=== PATIENT | male | born 1955 | race Caucasian/White ===

== ENCOUNTER 2020-07-18 15:00 | Emergency (ER) | payer SELFPAY ==
[~2020-07-18] VITALS: Ht 165.1 cm; Wt 61.0 kg
[~2020-07-18 15:00] MED LIST: DIPH,PERTUSS(ACELL),TET VAC/PF 0.5 ML SYRINGE. VAX IM ONE; IV NORMAL SALINE 1000ML BAG 1,000 ML IV ONE; LIDOCAINE 2%/EPI 1:100,000 20 ML VIAL. INJ ONE; NEOMY/BACITR/POLYMYXIN OINT PACKET. TP ONE; fentaNYL PF VIAL 100 MCG/2 ML VIAL IV ONE
--- NOTE | 2020-07-18 15:25 | PHYS DOC ---
Past Medical History Past Medical History: No Pertinent History Past Surgical History: No Surgical History Smoking Status: Current Every Day Smoker Alcohol Use: None Drug Use: None General Adult EDM: Chief Complaint: TRAUMA ALERT HPI: HPI: Patient is a 65-year-old male presenting to the ED with a dorsal left hand injury sustained by a chainsaw accident at 1315 today. Patient was cutting limbs off a tree when he lost control the chainsaw and ended up cutting the back of his left hand. Patient denies any numbness or tingling in his left hand but is unable extend his left third digit and can minimally extend his fourth digit. Patient denies any head trauma or falling during the incident. Patient states he is in considerable amount of pain and has felt short of breath and "in shock" since the incident. Patient's last ate at 1215 today. Reports last tetanus booster was greater than 5 years ago. Denies use of blood thinners. Denies kno wn exposure to COVID-19. Review of Systems: Review of Systems: Constitutional: Denies fever or chills Eyes: Denies redness or eye pain HENT: Denies nasal congestion or sore throat Respiratory: Denies cough or shortness of breath Cardiovascular: Denies chest pain or palpitations GI: Denies abdominal pain, nausea, or vomiting : Denies dysuria or hematuria Musculoskeletal: Reports joint pain Integument: Denies rash; reports laceration to dorsal left hand Neurologic: Denies headache, focal weakness or sensory changes Complete systems were reviewed and found to be within normal limits, except as documented in this note. Current Medications: Current Medications Medications (Trade) Dose Ordered Sig/[facility] Start Time Stop Time Status Last Admin Dose Admin Cefazolin Sodium/ Dextrose 50 ml @ 100 mls/hr 1X ONCE 07/18/20 14:45 07/18/20 15:14 07/18/20 14:48 100 MLS/HR Diphtheria/ Tetanus/Acell Pertussis (ADACEL TDap SYRINGE) 0.5 ml ONCE ONCE 07/18/20 14:45 07/18/20 14:47 DC Fentanyl Citrate (Fentanyl 2ml Vial) 50 mcg 1X ONCE 07/18/20 14:45 07/18/20 14:46 DC 07/18/20 14:49 50 MCG Lidocaine/ Epinephrine (LIDOCAINE 2%-EPI 1:100,000 multi-dose) 20 ml 1X ONCE 07/18/20 14:30 07/18/20 14:36 DC 07/18/20 14:49 20 ML Neomycin/ Polymyxin/ Bacitracin (Triple Antibiotic Ointment) 1 pkt 1X ONCE 07/18/20 14:30 07/18/20 14:36 DC 07/18/20 14:48 1 PKT Sodium Chloride 1,000 ml @ 1,000 mls/hr 1X ONCE 07/18/20 14:45 07/18/20 15:44 07/18/20 14:48 1,000 MLS/HR Allergies: Allergies: Allergies Coded Allergies Type Severity Reaction Last Updated Verified No Known Drug Allergies 07/18/20 No Physical Exam: PE: Constitutional: Well developed, well nourished, in moderate pain, non-toxic appearance HENT: Normocephalic, atraumatic Eyes: Conjunctiva normal, no discharge Neck: Normal range of motion, supple Lungs & Thorax: No respiratory distress, equal chest rise and fall Skin: Warm, dry, no erythema, no rash, laceration to dorsum of left hand as below Extremities: Left dorsal surface of the hand has a 6 cm laceration on the metacarpophalangeal line, the extensor tendon on the third digit appears to be full lacerated, fourth digit also seems to have weakness to finger extension with possible partial extensor tendon laceration, sensation is grossly intact to all digits Neurologic: Alert and oriented X 3, normal motor function except those due to mechanical trauma, normal sensory function, no focal deficits noted Psychologic: Affect normal, judgment normal Current Patient Data: Vital Signs: Vital Signs Date Time Temp Pulse Resp B/P (MAP) Pulse Ox O2 Delivery O2 Flow Rate FiO2 07/18/20 14:49 18 95 Room Air Radiology/Procedures: Radiology/Procedures: PROCEDURE: HAND LEFT 3V Left hand 3 views. HISTORY: Chainsaw accident 2 metacarpal phalangeal region. 3 views were taken of the left hand. There is soft tissue injury dorsally at the level of the metacarpal phalangeal joints. On the lateral view there is a possible small chip fracture off the proximal end of the second or third proximal phalanx. No other fracture is noted. IMPRESSION: 1. Soft tissue injury. 2. Possible tiny chip fracture Electronically signed by: Brad Kumar MD (07/18/2020 4:18 PM) [id number] Course & Med Decision Making: Course & Med Decision Making Pertinent Labs and Imaging studies reviewed. (See chart for details) 65-year-old male presenting to the ED with a 6 cm laceration on the dorsal aspect of his left hand at the metacarpal phalangeal line. Patient is unable to extend his third digit and the extensor tendon is visibly with complete laceration. There is also some weakness in the extension of the fourth digit. Wound copiously irrigated and dressed with volar splint application. Patient requiring surgical irrigated, debridement and tendon repair. Empric antibiotic given. Labs obtained and posted to chart. Discussed case with Dr. Hair (orthopedics) who requests rapid COVID testing and keep patient NPO with plan to take directly to OR for surgical evaluation and repair. Patient likely will be discharged home after OR. Discussed findings and plan with patient, who acknowledges understanding and agreement. Joyce Disclaimer: Joyce Disclaimer: This electronic medical record was generated, in whole or in part, using a voice recognition dictation system. Splinting Splinting : Location: Left hand Hand-Made Type: orthoglass Splint: volar Pre-Proc Neuro Vasc Exam: normal Post-Proc Neuro Vasc Exam: normal, unchanged from pre-exam Departure Departure Impression: Primary Impression: Laceration of left hand involving extensor tendon Disposition: ADMITTED INPATIENT (admitted to OR) Condition: STABLE Referrals: NO PCP (PCP) Justicifation of Admission Dx: Justifications for Admission: Justification of Admission Dx: Yes Comments: Extensor tendon lacerations GISSELLE JOSHI DO Jul 18, 2020 15:25
[2020-07-18 15:40] LABS: CALCIUM 8.8 mg/dL (8.5-10.1); CREATININE 1.4 mg/dL (0.7-1.3); GFR 51.2; POTASSIUM 3.3 mmol/L (3.5-5.1)
[2020-07-18] MEDS ORDERED: IV RINGERS,LACTATED 1000ML 1,000 ML IV SCH (15:41)
[2020-07-18 15:42] LABS: PROTHROMBIN TIME PATIENT 12.4 SEC (11.7-14.0)
[2020-07-18 15:44] LABS: ALBUMIN/GLOBULIN RATIO 1.1 (1.0-1.7); TOTAL BILIRUBIN 1.1 mg/dL (0.2-1.0); TOTAL PROTEIN 7.5 g/dL (6.4-8.2)
[2020-07-18] MEDS ORDERED: HYDROmorphone 2 MG/ML VIAL IV PRN (15:45)
[2020-07-18] MEDS ORDERED: ONDANSETRON PF 4 MG/2 ML VIAL. IV PRN (15:45)
[2020-07-18] MEDS ORDERED: LIDOCAINE 1% PF 2 ML VIAL. ID PRN (15:45)
[2020-07-18] MEDS ORDERED: PROCHLORPERAZINE 10 MG/2 ML VIAL. IV PRN (15:45)
[2020-07-18] MEDS ORDERED: MORPHINE SULFATE 2 MG/ML VIAL. IV PRN (15:45)
[2020-07-18] MEDS ORDERED: fentaNYL PF VIAL 100 MCG/2 ML VIAL IV PRN ×2 (15:45)
[2020-07-18] MEDS ORDERED: PROPOFOL 10 MG/ML (20ML) VIAL. IV ONE (15:55)
[2020-07-18] MEDS ORDERED: fentaNYL PF VIAL 100 MCG/2 ML VIAL ONE (15:55)
[2020-07-18] MEDS ORDERED: LIDOCAINE 2% PF 5 ML VIAL. ONE (15:55)
[2020-07-18 16:08] LABS: BASO # 0.1 x10^3/uL (0.0-0.2); BASO % 1 % (0-3); EOS # 0.2 x10^3/uL (0.0-0.7); EOS % 1 % (0-3); HEMATOCRIT 45.5 % (39.0-53.0); HEMOGLOBIN 15.7 g/dL (13.0-17.5); LYMPH # 3.2 x10^3/uL (1.0-4.8); LYMPH % 29 % (24-48); MEAN CORPUSCULAR HEMOGLOBIN 32 pg (25-35); MEAN CORPUSCULAR HGB CONC 34 g/dL (31-37); MEAN CORPUSCULAR VOLUME 93 fL (79-100); MONO # 0.7 x10^3/uL (0.0-1.1); MONO % 6 % (0-9); NEUT # 6.9 x10^3/uL (1.8-7.7); NEUT % 63 % (31-73); PLATELET COUNT 330 x10^3/uL (140-400); RED CELL DISTRIBUTION WIDTH 12.7 % (11.5-14.5)
--- NOTE | 2020-07-18 16:21 | RAD ---
Left hand 3 views. HISTORY: Chainsaw accident 2 metacarpal phalangeal region. 3 views were taken of the left hand. There is soft tissue injury dorsally at the level of the metacarpal phalangeal joints. On the lateral view there is a possible small chip fracture off the proximal end of the second or third proximal phalanx. No other fracture is noted. IMPRESSION: 1. Soft tissue injury. 2. Possible tiny chip fracture Electronically signed by: Brad Kumar MD (07/18/2020 4:18 PM) [id number]
[2020-07-18 16:52] LABS: BILIRUBIN,URINE NEGATIVE (NEG); CLARITY,URINE CLEAR; COLOR,URINE YELLOW; NITRITE,URINE NEGATIVE (NEG); PH,URINE 6.5 (<5.0-8.0); PROTEIN,URINE NEGATIVE (NEG-TRACE); UROBILINOGEN,URINE 0.2 mg/dL (0.2 mg/dL)
[2020-07-18 16:58] LABS: HYALINE CASTS, URINE MODERATE /HPF
[2020-07-18 16:59] LABS: BACTERIA,URINE 0 /HPF (0-FEW)
[2020-07-18] MEDS ORDERED: ceFAZolin SODIUM IV Push 1 GM VIAL. IVP ONE ×2 (18:35)
[2020-07-18] MEDS ORDERED: SEVOFLURANE 31 TO 60 MINUTES. IH ONE (18:48)
[2020-07-18] MEDS ORDERED: DEXAMETHASONE SOD PHOS 4 MG/ML VIAL ONE (18:48)
[2020-07-18] MEDS ORDERED: ONDANSETRON PF 4 MG/2 ML VIAL. ONE (18:56)
[2020-07-18] MEDS ORDERED: OXYC-325 PO (20:13)
[2020-07-18] MEDS ORDERED: CEPH-264 PO (20:13)
[2020-07-18] MEDS ORDERED: MORPHINE SULFATE 2 MG/ML VIAL. ONE (20:16)
--- NOTE | 2020-07-18 20:17 | DISCH ---
DISCHARGE INSTRUCTIONS Condition on Discharge Condition on Discharge: Stable Activity After Discharge Activity Instructions for Disc: Other, see below (keep splint on index, long and ring fingers) Diet after Discharge Diet after Discharge: Regular Wound Incision Care Wound/Incision Care: Ice to area for comfort, Keep wound elevated, Do not change dressing (keep dressing clean and dry) Contacting the after DC Call your doctor for: Concerns you may have Follow-Up Follow up with: Dr. Hair 1 week BANDAR HAIR MD Jul 18, 2020 20:17
[2020-07-18] MEDS ORDERED: oxyCODONE/APAP 5/325 1 TAB TABLET PO ONE (20:30)
[2020-07-18] MEDS: MORPHINE SULFATE 2 MG/ML VIAL. IV PRN ×2 (20:31→20:42)
[2020-07-18 20:50] VITALS: BP 119/70
--- NOTE | 2020-07-18 20:51 | PDOC4 ---
Operative Note Operative Note Date of surgery: 07/18/2020 Preoperative diagnosis: Dorsal left hand laceration with extensor tendon involvement Postoperative diagnosis: Same with complete laceration of left index and long fi nger extensor tendon and dorsal joint capsule, incomplete laceration ring finger extensor tendon Operative procedure: Irrigation debridement of left dorsal hand laceration with index long and ring finger extensor tendon repairs Surgeon: Reginaldo Anesthesia: General Estimated blood loss: 25 cc Complications: None Operative indications: Please see my dictated orthopedic emergency department consultation for detailed operative indications Operative text: Patient was identified procedure verified and after adequate amounts of general anesthesia were administered, the left upper extremity was prepped and draped in standard sterile fashion with an upper arm tourniquet. After timeout was performed patient procedure again identified and verified thorough irrigation carried out with normal saline solution of the laceration area. Bleeding points controlled by electrocautery and tourniquet was inflated to 250 mmHg. The extensor tendon and joint capsule were lacerated on the index and long fingers. Joints were exposed but no gross contamination noted. The ring finger extensor tendon was explored and noted to have a significant partial extensor tendon injury of over 50%. Both joints were thoroughly irrigated with normal saline solution and surrounding tissues were debrided of devitalized tissue with skin subcutaneous tissue tendon edges and down to the joint capsule. Extensor tendon repairs were carried out with 3-0 Ethibond suture in a grasping fashion and tendons were opposed and sutures tied with the fingers held in full extension. A total of a 4 strand repair was accomplished on the index and long fingers with a 2 strand repair carried out on the ring finger extensor. Surrounding capsule was closed lightly with Vicryl sutures and skin was opposed with 3-0 nylon suture repairing the irregular laceration with a complex closure of about 11 cm in length total. Xeroform gauze followed by sterile dressings and a well-padded Ortho-Glass splint were placed with the index long and ring fingers held in extension. Fingers were noted to be warm pink following deflation of the tourniquet patient was returned to recovery room stable condition having tolerated procedure well BANDAR AQUINO MD Jul 18, 2020 20:51
--- NOTE | 2020-07-19 00:57 | CONS ---
DATE OF CONSULTATION: 07/18/2020 EMERGENCY DEPARTMENT CONSULTATION THIS WILL SERVE HIS ORTHOPEDIC CONSULTATION WELL PREOPERATIVE HISTORY AND PHYSICAL. HISTORY OF PRESENT ILLNESS: The patient is a left hand dominant male who was up on a ladder and a tree operating a chainsaw, saw through a branch and he was holding the saw with his right hand and it went down and hit the back of his left hand, which was resting and holding on to the latter. He did not fall, but does report a bit of a lot of pain and some shortness of breath initially since the incident. No loss of consciousness and no subsequent chest pain or other complaints aside from the pain. He cannot extend his left long finger and fourth finger is very weak and painful and attempting to extend. He denies any past medical or surgical history. SOCIAL HISTORY: Denies alcohol or drug use. Does smoke every day, somewhere around a pack a day. ALLERGIES: He has no known drug allergies. MEDICATIONS: Barely minimal medications. REVIEW OF SYSTEMS: Again, denies any chest pain or current shortness of breath. Initially was somewhat shocky on his initial injury and presentation. Denies any head trauma, neck or back pain, radiating pain, numbness, tingling aside from just some numbness generally at the back of his left hand. He notes that his tetanus booster was over 5 years ago and was administered in the Emergency Department. His last food intake was at 12:15 today. Denies any change in bowel or bladder habits, recent gain, weight loss and the rest of his review of systems is otherwise 14 points negative. PHYSICAL EXAMINATION: GENERAL: Pleasant, cooperative 65-year-old left hand dominant male. VITAL SIGNS: Temperature 98.6, pulse 72, respirations 20, blood pressure 107/67, 99% saturation on room air. HEENT: Atraumatic, normocephalic. HEART: Regular rate and rhythm. LUNGS: Clear to auscultation bilaterally. ABDOMEN: Benign. EXTREMITIES: Examination of the left hand reveals a transverse laceration that basically goes across the dorsal aspect of the left hand clearly involving a laceration of the long finger extensor tendon likely some weakness and involvement of the ring finger as well. He has pain on extension with the index finger and small finger, none with extension of the thumb, flexors are all intact, but elicits pain in the dorsum of the hand, both profundus and superficialis function. Sensation just slightly paresthetic especially over the long and ring fingers dorsal aspect. He has normal examination of the contralateral hand, bilateral wrists, elbows, shoulders, and other than the ____, intact motor function, distal pulses, sensation in both upper extremities throughout. IMAGING: X-rays show appearance of just soft tissue injury basically at very close to the metacarpophalangeal joint area with no bony abnormality noted. IMPRESSION: Extensor tendon laceration with large dorsal hand laceration. TREATMENT PLAN: I went over with him and his family that was present, the concern for infection, the need for washout, repair of the extensor tendon or any other structures to ensure their stability and I went over with him the need to protect these and extension as the flexors are much more powerful than the extensors and I do not want to compromise the repair told him that this would likely be splinted out for 3-4 weeks depending on his condition and the strength of the repair and healing. All his questions were answered. He wishes to proceed with surgical evaluation and treatment, which will occur today as soon as possible pending his n.p.o. status. BANDAR AQUINO MD DR: CIERA/yohannes JOB#: [id number] / [id number]
== END 2020-07-18 17:30 | disposition still patient (30) ==
LOC: OPSVCOP 15:00 → SDC 15:00 → ER 15:00 → SDC 17:30 → OPSVCOP 17:30 → ER 17:30
DX: S66.822A Laceration of other specified muscles, fascia and tendons at wrist and hand level, left hand, initial encounter (principal); Z20.828 Contact with and (suspected) exposure to other viral communicable diseases; Z79.01 Long term (current) use of anticoagulants; F17.210 Nicotine dependence, cigarettes, uncomplicated; X58.XXXA Exposure to other specified factors, initial encounter; Y93.89 Activity, other specified; Y92.89 Other specified places as the place of occurrence of the external cause; Y99.8 Other external cause status
CPT/HCPCS: 26410; 36415; 73130; 80053; 81001; 83735; 85025; 85610; 85730; 87426; 90471; 90715; 96361; 96365; 96375; 99285; A7015; J0690; J1100; J2270; J2405; J2704; J3010; J3490; J7030; J7120; U0003; 96366; A4461